=== PATIENT | female | born 1985 | race Caucasian/White ===

== ENCOUNTER 2018-11-26 12:25 | Inpatient (IN) | payer OTHER ==
[2018-11-26] MEDS ORDERED: CITRIC ACID/SODIUM CITRATE 30 ML UNIT-DOSE CUP PO ONE ×2 (12:53→13:00)
[2018-11-26] MEDS ORDERED: ELECTROLYTE-148 SOLN 1,000 ML IV SCH (13:00)
[2018-11-26] MEDS ORDERED: ELECTROLYTE-148 SOLN 1,000 ML IV ONE (13:00)
[2018-11-26 13:16] VITALS: BMI 28.3
[2018-11-26] MEDS ORDERED: morphine SULFATE/PF 0.5 MG/ML (2cc Syringe - QUVA) ONE (14:06)
[2018-11-26] MEDS ORDERED: ceFAZolin SODIUM 1 GM VIAL ONE (14:06)
[2018-11-26] MEDS ORDERED: ePHEDrine SULFATE 50 MG/1 ML AMPULE ONE (14:06)
[2018-11-26] MEDS ORDERED: OXYTOCIN 20 UNITS in 0.9% NS 40 UNIT/2,000 ML INFUS.BAG IV ONE (14:12)
--- NOTE | 2018-11-26 14:18 | HP ---
Past Medical History - Primary Care Physician PCP:: Ritesh Wei - Admission Chief Complaint: Scheduled repeat C/S History of Present Illness: Late care seeker and prior c/S desiring repeat C/S History Source: Patient Limitations to Obtaining History: No Limitations - Past Medical History CREDIT CONTROLLER: No: Alzheimer's, CVA, Dementia, Migraine, Multiple Sclerosis, Peripheral Neuropathy, Parkinson's, Seizure, Syncope, TIA, Vertigo, Other Cardiovascular: No: AFIB, Aneurysm, Aortic Insufficiency, Aortic Stenosis, CAD, CHF, Deep Vein Thrombosis, HTN, Hyperlipdemia, [place], Mitral Insufficiency, Mitral Stenosis, Murmur, Pulmonary Hypertension, Other Pulmonary: No: Asthma, Bronchitis, Cancer, COPD, O2 Dependent, Pneumonia, Previously Intubated, Pulmonary Embolus, Pulmonary Fibrosis, Sleep Apnea, Other Gastrointestinal: No: Ascites, Cancer, Constipation, Crohn's Disease, Diverticulitis, Diverticulosis, Esophageal Varices, Gastritis, GERD, GI Bleed, Hemorrhoids, Hiatal Hernia, Inflamatory Bowel Disease, Irritable Bowel Disease, Pancreatitis, Peptic Ulcer Disease, Ulcerative Colitis, Other Hepatobiliary: No: Cirrhosis, Cholelithiasis, Cholecystitis, Choledocholithiasis , Hepatitis A, Hepatitis B, Hepatitis C, Other Renal/: No: Renal Failure, Renal Inusuff, BPH, Cancer, Hematuria, Hemodialysis , Neurogenic Bladder, Renal Calculi, UTI, Other Reproductive: No: Ectopic , Endometriosis, Fibroids, PID, Polycystic Ovary Syndrome, Postmenopausal, Other ...: 4 ...Para: 3 ...Term: 3 ...: 0 ...Spon : 0 ...Induced : 0 ...Multiple Gestation: 0 ...LMP: 02/20/18 ... Weeks Gestation by Dates: 39.6 ...EDC by Dates: 11/27/18 ...EDC by Sono: 12/03/18 Heme/Onc: No: Anemia, B12 Deficiency, Bleeding Disorder, Cancer, Current Chemotherapy, Current Radiation Therapy, Hemochromatosis, Hypercoaguable State, Myeloproliferative Synd, Sickle Cell Disease, Sickle Cell Trait, Thrombocytopenia, Other Infectious Disease: No: AIDS, C-Diff, Herpes Zoster, HIV, MRSA, STD's, Tuberculosis, VREF, Other Psych: No: Addictions, Anxiety, Bipolar, Depression, Panic, Psychosis, Schizophrenia, Other Musculoskeletal: No: Bursitis, Chronic low back pain, Hemiparesis, Hemiplegia, Osteoarthritis, Paraplegia, Other Rheumatology: No: Fibromyalgia, Gout, Lupus, Rheumatoid Arthritis, Sarcoidosis, Vasculitis, Other ENT: No: Allergic Rhinitis, Sinusitis, Other Endocrine: No: Oscar's Disease, Gorin's Disease, Diabetes Insipidus, Diabetes Mellitus, Hyperparathyroidism, Hyperthyroidism, Hypothyroidism, Osteopenia, SIADH, Other Dermatology: No: Basal Cell, Cellulitis, Eczema, Melanoma, Psoriasis, Squamous Cell, Other - Past Surgical History Past Surgical History: Yes: Hx Myomectomy: No Hx Transabdominal Cerclage: No - Smoking History Smoking history: Never smoked Have you smoked in the past 12 months: No - Alcohol/Substance Use Hx Alcohol Use: No - Social History History of Recent Travel: Yes Home Medications - Allergies Allergies/Adverse Reactions: Allergies Allergy/AdvReac Type Severity Reaction Status Date / Time No Known Allergies Allergy Verified 11/26/18 12:39 - Home Medications Home Medications: Ambulatory Orders Pnv No.95/Ferrous Fum/Folic AC [ Vitamin Tablet] 1 each PO DAILY Family Disease History - Family Disease History Family History: Unremarkable Review of Systems - Review of Systems Constitutional: reports: No Symptoms Eyes: reports: No Symptoms HENT: reports: No Symptoms Neck: reports: No Symptoms Cardiovascular: reports: No Symptoms Respiratory: reports: No Symptoms Gastrointestinal: reports: No Symptoms Genitourinary: reports: No Symptoms Breasts: reports: No Symptoms Reported Musculoskeletal: reports: No Symptoms Integumentary: reports: No Symptoms Neurological: reports: No Symptoms Endocrine: reports: No Symptoms Hematology/Lymphatic: reports: No Symptoms Psychiatric: reports: No Symptoms Physical Exam - Maternity Vital Signs: Vital Signs Temperature 98.8 F 11/26/18 12:25 Pulse Rate 90 11/26/18 12:25 Respiratory Rate 18 11/26/18 12:25 Blood Pressure 95/58 L 11/26/18 12:25 O2 Sat by Pulse Oximetry (%) Constitutional: Yes: No Distress Eyes: Yes: WNL HENT: Yes: Atraumatic, Normocephalic Neck: Yes: Supple Cardiovascular: Yes: Regular Rate and Rhythm Breast(s): Yes: WNL, Other (deferred) - Abdominal Exam/OB Number of Fetuses: Single Presentation: Vertex Contractions: Yes Regularity: Irregular Intensity: Unaware Monitor Mode: External Category: I Accelerations: Uniform Decelerations: None - Vaginal Exam/OB Vaginal Bleediing: No Speculum Exam: No (exam deferred) Amniotic Membrane Status: Intact - Physical Exam Musculoskeletal: Yes: WNL Extremities: Yes: WNL Edema: Yes Edema: LLE: Trace, RLE: Trace Integumentary: Yes: WNL ...Motor Strength: WNL Psychiatric: Yes: Alert, Oriented - Labs Lab Results: reviewed Imaging - Results Ultrasound: Report Reviewed, Image Reviewed Problem List - Problems (1) History of delivery Code(s): Z98.891 - HISTORY OF UTERINE SCAR FROM PREVIOUS SURGERY Assessment/Plan 33 y/o @ 29wks by 1st trimester sono, prior C/S desiring repeat C?S, late transfer of care, risks and complications of section discussed. Informed consebt obtained after all questions were answered. -Proceed with surgery as scheduled
[2018-11-26] MEDS ORDERED: DEXAMETHASONE SOD PHOSPHATE 4 MG/1 ML VIAL ONE (14:38)
[2018-11-26] MEDS ORDERED: OXYTOCIN 10 UNITS/ML VIAL ONE (14:38)
[2018-11-26] MEDS ORDERED: ONDANSETRON 4 MG/2 ML VIAL IVPUSH PRN (15:10)
[2018-11-26] MEDS ORDERED: morphine SULFATE/PF 0.5 MG/ML (2cc Syringe - QUVA) EP ONE (15:10)
[2018-11-26] MEDS ORDERED: IBUPROFEN 600 MG TABLET (FP) PO PRN (15:37)
--- NOTE | 2018-11-26 15:37 | PN ---
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 Please refer to dictated note for details, Dic #[id number]
[2018-11-26] MEDS ORDERED: SIMETHICONE 80 MG TAB.CHEW (FP) PO PRN (15:38)
[2018-11-26] MEDS ORDERED: ACETAMINOPHEN 325 MG TABLET (FP) PO PRN (15:38)
[2018-11-26] MEDS ORDERED: SENNOSIDES/DOCUSATE COMBO (SENNA PLUS) TABLET (UD) PO PRN (15:38)
[2018-11-26 16:33] LABS: COCAINE, UR NEGATIVE ng/ml (CUTOFF=300); METHADONE, UR NEGATIVE ng/ml (CUTOFF=300); OPIATES, URI NEGATIVE ng/ml (CUTOFF=300); PHENCYCLIDINE,URINE NEGATIVE ng/ml (CUTOFF=25); URINE AMPHETAMINES NEGATIVE ng/ml (CUTOFF=500); URINE BARBITURATES NEGATIVE ng/ml (CUTOFF=200); URINE BENZODIAZEPINES NEGATIVE ng/ml (CUTOFF=200)
[2018-11-26] MEDS: OXYTOCIN 20 UNITS in 0.9% NS 20 UNIT/1,000 ML INFUS.BAG IV SCH ×2 (17:05→23:01)
[2018-11-26] MEDS ORDERED: METHYLERGONOVINE MALEATE 0.2 MG/1 ML AMP IM ONE (17:18)
--- NOTE | 2018-11-26 17:26 | OP ---
DATE OF OPERATION: 11/26/2018 PREOPERATIVE DIAGNOSIS: A 33-year-old 4, para 3 at 39 with gestation, prior section, desiring repeat section. POSTOPERATIVE DIAGNOSIS: A 33-year-old 4, para 3 at 39 with gestation, prior section, desiring repeat section. SURGERY: Repeat low transverse section, uncomplicated. SURGEON: Britt Méndez M.D. UTILIZATION REVIEWER: Uzair Gallegos ANESTHESIA: Spinal. ESTIMATED BLOOD LOSS: 600. INTRAVENOUS FLUIDS: 1200 mL of crystalloid. URINE: Clear. COMPLICATIONS: None. INTRAOPERATIVE FINDINGS: Low abdominal skin incision scar consistent with prior section, mild amount of subcutaneous adipose tissue and fibrotic tissue. The fascia was thick, adherent to the underlying rectus muscles. Rectus muscles were fused to each other in the midline. No visualized adhesions to the parietal peritoneum. The lower uterine segment was mildly effaced. Infant in cephalic presentation. Clear amniotic fluid. No nuchal cord present. Live viable female . Uterine fundus, fallopian tubes, and ovaries consistent with normal anatomy. Bladder dome and rectus muscles fascial interface dry. DESCRIPTION OF PROCEDURE: The patient was taken to the operating room where spinal anesthesia was found to be adequate. She was then prepped and draped in the normal sterile fashion. A Emery catheter was placed atraumatically. Appropriate timeout took place. Pfannenstiel skin incision was made with the scalpel and carried to underlying fascia with Bovie. The fascia was incised in the midline and incision extended laterally with sharp dissection. Incision was extended laterally with sharp dissection. The underlying rectus muscles were dissected off the overlying fascia with sharp dissection. The rectus muscles were fused at the midline and elevated with Allis clamps. It was in the midline superiorly with scalpel. Gaining entry to the peritoneum revealed no visualized adhesions at the point of entry by digital palpation by the surgeon. Incision was extended superiorly and inferiorly with blunt and sharp dissection. Bladder blade was placed on the lower uterine segment noted as previously mentioned. Lower uterine segment incision was made with the scalpel approximately 5 cm above the vesicouterine junction. Incision was extended laterally with blunt dissection. Amniotomy revealed clear amniotic fluid. Infant in cephalic presentation. was elevated through surgical incision and delivered with mild fundal pressure without difficulty. The shoulders and rest of the body followed without difficulty. The umbilical cord was clamped and cut after delay. The was handed off to the waiting NICU staff. The placenta was removed manually and intact. The uterus was exteriorized through the surgical incision, and the intrauterine cavity was cleared of al clots and debris. The uterine incision was reapproximated with 1-0 Vicryl in a running locked suture. Excellent structural reapproximation achieved, and two [id number] stitches of the same suture were required at midline to control minimal oozing. Uterus was internalized to the pelvic cavity and gutters were cleared of all clots and debris. Secondary inspection of the uterine incision revealed excellent hemostasis. Bladder dome and rectal muscles fascial interface were examined and noted to be dry. The fascial incision was reapproximated with 0 Vicryl running sutures. Excellent structural reapproximated achieved and confirmed by digital palpation by the surgeon. Subcutaneous tissues were copiously irrigated. Bleeders neutralized with Bovie cautery. Subcutaneous tissue in the midline was reapproximated with 1-0 Vicryl. Skin incision was reapproximated with 3-0 subcuticular Vicryl sutures. Excellent reapproximation with this noted. Dressing is placed on the incision. Patient tolerated the procedure well and was brought to the recovery room in stable condition. Instrument count was reported as correct x2 by the staff. BRITT MÉNDEZ MD [id number] MTDD
--- NOTE | 2018-11-26 17:28 | PN ---
Progress Note, Physician Chief Complaint: incision dressing saturated in one site. Patient is doing well, denies any dizziness, lightheadedness, SOB - Current Medication List Current Medications: Active Medications Acetaminophen (Tylenol -) 650 mg PO Q4H PRN PRN Reason: PAIN LEVEL 4 - 6 Bisacodyl (Dulcolax Suppository -) 10 mg RC PRN PRN PRN Reason: CONSTIPATION Diphenhydramine HCl (Benadryl Injection -) 25 mg IVPUSH Q4H PRN PRN Reason: Pruritis Parenteral Electrolytes (Plasma-Lyte 148 -) 1,000 mls @ 125 mls/hr IV [facility] Last Admin: 11/26/18 13:05 Dose: 125 mls/hr Oxytocin/Sodium Chloride (Normal Saline+20 Units Oxytocin -) 1,000 mls @ 125 mls/hr IV [facility] Ibuprofen (Motrin -) 600 mg PO Q4H PRN PRN Reason: PAIN LEVEL 1 - 3 Methylergonovine Maleate (Methergine Injection -) 0.2 mg IM ONCE ONE Stop: 11/26/18 17:19 Methylergonovine Maleate (Methergine -) 0.2 mg PO Q4H GM Stop: 11/27/18 17:30 Ondansetron HCl (Zofran Injection) 4 mg IVPUSH Q4H PRN PRN Reason: NAUSEA Oxycodone HCl (Roxicodone -) 5 mg PO Q4H PRN PRN Reason: PAIN LEVEL 6-10 Senna/Docusate Sodium (Pericolace -) 2 tablet PO HS PRN PRN Reason: CONSTIPATION Simethicone (Mylicon -) 80 mg PO Q4H PRN PRN Reason: GAS - Objective Vital Signs: Vital Signs Temperature 97.5 F L 11/26/18 16:15 Pulse Rate 86 11/26/18 16:15 Respiratory Rate 18 11/26/18 16:15 Blood Pressure 101/57 L 11/26/18 16:15 O2 Sat by Pulse Oximetry (%) 99 11/26/18 16:15 Genitourinary: Yes: Vaginal Bleeding (SVE: cervix 3cm deliated and blood clots from lower uterine segment expressed. FUndus is firm 2 cm below umbilicus. Approximately 100ml) Edema: LLE: Trace, RLE: Trace Wound/Incision: Yes: Dressing Removed (no active bleeding noted and steri- strips removed. Mild oozing from small area of incision at skin edges when pressure applied. New stri-strips and pressure dressing placed) Labs: CBC ordered Problem List - Problems (1) History of delivery Code(s): Z98.891 - HISTORY OF UTERINE SCAR FROM PREVIOUS SURGERY Assessment/Plan POD # 0 with partial saturation of dressing and mild atony. Patient is in stable condition -Stat labs -Methergine series -increase pitocin administration
[2018-11-26 17:53] LABS: BASO % 0.1 % (0-2.0); EOS % 0.3 % (0-4.5); HEMATOCRIT 33.7 % (32.4-45.2); HEMOGLOBIN 11.4 GM/dL (10.7-15.3); LYMPH % 7.6 % (8-40); MCHC 33.9 g/dl (32.0-36.0); MEAN CELL VOLUME 85.7 fl (80-96); MEAN PLT VOLUME 9.9 fl (7.5-11.1); MONO % 1.8 % (3.8-10.2); NEUT % 90.2 % (42.8-82.8); PLATELET COUNT 141 K/MM3 (134-434); RBC 3.93 M/mm3 (3.60-5.2); RDW 14.5 % (11.6-15.6); WHITE BLOOD COUNT 11.8 K/mm3 (4.0-10.0)
[2018-11-26] MEDS ORDERED: METHYLERGONOVINE MALEATE 0.2 MG TABLET (FP) PO SCH (18:00)
[2018-11-26 21:02] LABS: BASO % 0.1 % (0-2.0); EOS % 0.1 % (0-4.5); HEMOGLOBIN 11.8 GM/dL (10.7-15.3); LYMPH % 6.6 % (8-40); MCH 28.8 pg (25.7-33.7); MCHC 33.6 g/dl (32.0-36.0); MEAN CELL VOLUME 85.8 fl (80-96); MEAN PLT VOLUME 10.3 fl (7.5-11.1); MONO % 2.9 % (3.8-10.2); NEUT % 90.3 % (42.8-82.8); PLATELET COUNT 137 K/MM3 (134-434); RBC 4.08 M/mm3 (3.60-5.2); RDW 14.5 % (11.6-15.6); WHITE BLOOD COUNT 15.4 K/mm3 (4.0-10.0)
[2018-11-26] MEDS: METHYLERGONOVINE MALEATE 0.2 MG TABLET (FP) PO SCH (21:26)
[2018-11-27] MEDS: METHYLERGONOVINE MALEATE 0.2 MG TABLET (FP) PO SCH ×5 (01:02→18:03)
[2018-11-27 07:46] LABS: BASO % 0.2 % (0-2.0); EOS % 0.8 % (0-4.5); HEMATOCRIT 34.1 % (32.4-45.2); HEMOGLOBIN 11.7 GM/dL (10.7-15.3); LYMPH % 11.8 % (8-40); MCHC 34.3 g/dl (32.0-36.0); MEAN CELL VOLUME 84.7 fl (80-96); MONO % 6.5 % (3.8-10.2); NEUT % 80.7 % (42.8-82.8); PLATELET COUNT 130 K/MM3 (134-434); RBC 4.03 M/mm3 (3.60-5.2); RDW 14.6 % (11.6-15.6); WHITE BLOOD COUNT 12.7 K/mm3 (4.0-10.0)
[2018-11-27] MEDS: IBUPROFEN 600 MG TABLET (FP) PO PRN ×2 (08:59→22:07)
[2018-11-27] MEDS: SIMETHICONE 80 MG TAB.CHEW (FP) PO PRN ×2 (08:59→22:07)
[2018-11-27] MEDS: oxyCODONE HCL 5 MG TABLET PO PRN ×2 (09:00→22:07)
--- NOTE | 2018-11-27 09:08 | PN ---
Post Progress Note - Subjective Subjective: sanchez in place, lochia decreased, tolerating PO, breast feeding Post Day: 1 Type of Delivery: Repeat C/S Vital Signs: Vital Signs Temperature 98.3 F 11/27/18 04:00 Pulse Rate 75 11/27/18 04:00 Respiratory Rate 18 11/27/18 06:00 Blood Pressure 105/59 L 11/27/18 04:00 O2 Sat by Pulse Oximetry (%) 99 11/26/18 16:15 Breast Exam: Yes: Other (deferred) Uterus: Yes: Fundus Firm Incision: Yes: Dressing dry and intact (removed), Sutures intact Abdomen/GI: Yes: Abdomen soft Lochia, amount: Small Extremities: Yes: Calves non-tender Activity: Ambulating - Labs Labs: CBC WBC 12.7 K/mm3 (4.0-10.0) H 11/27/18 06:00 RBC 4.03 M/mm3 (3.60-5.2) 11/27/18 06:00 Hgb 11.7 GM/dL (10.7-15.3) 11/27/18 06:00 Hct 34.1 % (32.4-45.2) 11/27/18 06:00 MCV 84.7 fl (80-96) 11/27/18 06:00 MCH 29.0 pg (25.7-33.7) 11/27/18 06:00 MCHC 34.3 g/dl (32.0-36.0) 11/27/18 06:00 RDW 14.6 % (11.6-15.6) 11/27/18 06:00 Plt Count 130 K/MM3 (134-434) L 11/27/18 06:00 MPV 10.0 fl (7.5-11.1) 11/27/18 06:00 Absolute Neuts (auto) 10.2 K/mm3 (1.5-8.0) H 11/27/18 06:00 Neutrophils % 80.7 % (42.8-82.8) 11/27/18 06:00 Lymphocytes % 11.8 % (8-40) D 11/27/18 06:00 Monocytes % 6.5 % (3.8-10.2) D 11/27/18 06:00 Eosinophils % 0.8 % (0-4.5) D 11/27/18 06:00 Basophils % 0.2 % (0-2.0) 11/27/18 06:00 Nucleated RBC % 0 % (0-0) 11/27/18 06:00 Problem List - Problems (1) History of delivery Code(s): Z98.891 - HISTORY OF UTERINE SCAR FROM PREVIOUS SURGERY (2) Delivery by section Code(s): DXS6568 - Assessment/Plan POD # 1 in stable condition -D/C follow -ambulation encouraged -F/A labs -Complete methergine series
[2018-11-27] MEDS ORDERED: DIPHTH,PERTUSS(ACELL),TET 0.5 ML DISP.SYRIN IM ONE (10:00)
--- NOTE | 2018-11-27 13:55 | PN ---
Progress Note (short form) - Note Progress Note: Anesthesia postop note 33y/o F s/p spinal anesthesia duramorph for postop pain control POD#!, vss, aaox3, pain well controlled, no complaints, sensory motor intact distally No anesthesia complications.
[2018-11-27] MEDS ORDERED: BISACODYL 10 MG SUPP.RECT RC PRN ×2 (15:37→15:38)
[2018-11-28] MEDS: IBUPROFEN 600 MG TABLET (FP) PO PRN (07:13)
[2018-11-28] MEDS: SIMETHICONE 80 MG TAB.CHEW (FP) PO PRN (07:13)
[2018-11-28] MEDS: oxyCODONE HCL 5 MG TABLET PO PRN (07:16)
--- NOTE | 2018-11-28 08:07 | PN ---
Post Progress Note - Subjective Subjective: Headache with standing, also neck pain. Declined blood patch from anesthesia today. Post Day: 2 Type of Delivery: Repeat C/S Vital Signs: Vital Signs Temperature 99.1 F 11/27/18 20:43 Pulse Rate 70 11/27/18 20:43 Respiratory Rate 20 11/27/18 20:43 Blood Pressure 100/57 L 11/27/18 20:43 O2 Sat by Pulse Oximetry (%) 99 11/26/18 16:15 Uterus: Yes: Fundus Firm Incision: Yes: Dressing dry and intact Abdomen/GI: Yes: Abdomen soft, Passing flatus, Tolerating PO Lochia: Yes: Rubra Lochia, amount: Small Extremities: Yes: Calves non-tender Perineum: Yes: Intact Activity: Ambulating - Labs Labs: CBC WBC 12.7 K/mm3 (4.0-10.0) H 11/27/18 06:00 RBC 4.03 M/mm3 (3.60-5.2) 11/27/18 06:00 Hgb 11.7 GM/dL (10.7-15.3) 11/27/18 06:00 Hct 34.1 % (32.4-45.2) 11/27/18 06:00 MCV 84.7 fl (80-96) 11/27/18 06:00 MCH 29.0 pg (25.7-33.7) 11/27/18 06:00 MCHC 34.3 g/dl (32.0-36.0) 11/27/18 06:00 RDW 14.6 % (11.6-15.6) 11/27/18 06:00 Plt Count 130 K/MM3 (134-434) L 11/27/18 06:00 MPV 10.0 fl (7.5-11.1) 11/27/18 06:00 Absolute Neuts (auto) 10.2 K/mm3 (1.5-8.0) H 11/27/18 06:00 Neutrophils % 80.7 % (42.8-82.8) 11/27/18 06:00 Lymphocytes % 11.8 % (8-40) D 11/27/18 06:00 Monocytes % 6.5 % (3.8-10.2) D 11/27/18 06:00 Eosinophils % 0.8 % (0-4.5) D 11/27/18 06:00 Basophils % 0.2 % (0-2.0) 11/27/18 06:00 Nucleated RBC % 0 % (0-0) 11/27/18 06:00 Assessment/Plan 33yo s/p RLTCS, POD#2 Routine PP care PO pain control Rediscussed anesthesia blood patch, to consider Anticipate d/c to home POD#3 Zari Finch MD
--- NOTE | 2018-11-28 08:41 | PN ---
Progress Note (short form) - Note Progress Note: Anesthesia POD#2 S/P C- Section under Spinal anesthesia VSS,c/o neck pain and dizziness while getting out of bed. Seen and examined at the bedside. A/P Strong suspicion of PDPH. She would need Blood Patch before going home. Spoke to the patient,she wants some time to think about it. Sade Can MD.
--- NOTE | 2018-11-28 10:31 | PN ---
Progress Note (short form) - Note Progress Note: Epidural blood patch done under sterile conditions at L2-L3.20 Ml of Patient,s own blood drawn under sterile conditions injected through the epidural needle.Patient,s headache subsided.Advised bed rest for about 30 minutes.
--- NOTE | 2018-11-29 06:15 | DS ---
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 Vital Signs: Vital Signs Temperature 98.4 F 11/28/18 21:18 Pulse Rate 74 11/28/18 21:18 Respiratory Rate 20 11/28/18 21:18 Blood Pressure 116/64 11/28/18 21:18 O2 Sat by Pulse Oximetry (%) 99 11/26/18 16:15 Constitutional: Yes: Well Nourished, No Distress, Calm Eyes: Yes: WNL, Conjunctiva Clear, EOM Intact HENT: Yes: WNL, Atraumatic, Normocephalic Neck: Yes: WNL, Supple, Trachea Midline Cardiovascular: Yes: WNL, Regular Rate and Rhythm Respiratory: Yes: WNL, Regular, CTA Bilaterally Gastrointestinal: Yes: WNL ...Rectal Exam: Yes: WNL Renal/: Yes: WNL Cervix: Yes: Normal ....Post : Yes: Uterus firm, Uterus non-tender, Slight lochia rubra Breast(s): Yes: WNL Musculoskeletal: Yes: WNL Extremities: Yes: WNL Edema: No Integumentary: Yes: WNL Wound/Incision: Yes: Clean/Dry, Well Approximated, Sutures Intact Neurological: Yes: WNL, Alert, Oriented ...Motor Strength: WNL Psychiatric: Yes: WNL, Alert, Oriented Labs: CBC, BMP 11/27/18 06:00 Delivery - Delivery Section: Repeat Type of Anesthesia: Spinal Episiotomy/Laceration: None EBL (cc): 600 Delivery, Single - Stages of Labor Date of Delivery: 11/26/18 Time of Delivery: 14:45 Time Placenta Delivered: 14:46 Placenta: Yes: Manual Removal - Condition of Infant 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 Wei for an incision check Regular Diet Referrals: Ritesh Wei MD [Staff Physician] - Disposition: HOME - Home Medications Comprehensive Discharge Medication List: Ambulatory Orders Docusate Sodium [Colace] 100 mg PO BID PRN 7 Days #14 capsule MDD 2 11/26/18 Ibuprofen 600 mg PO Q6H PRN #30 tablet 11/26/18 Oxycodone HCl/Acetaminophen [Percocet 5-325 mg Tablet -] 1 tab PO Q4H PRN 3 Days #14 tab MDD 6 11/26/18 Pnv No.95/Ferrous Fum/Folic AC [ Vitamin Tablet] 1 each PO DAILY
[2018-11-29] MEDS: IBUPROFEN 600 MG TABLET (FP) PO PRN (08:06)
[2018-11-29] MEDS: SIMETHICONE 80 MG TAB.CHEW (FP) PO PRN (08:06)
--- NOTE | 2018-11-29 08:56 | PN ---
Progress Note (short form) - Note Progress Note: Patient had a blood patch for post op dural puncture headache.The headache subsided with blood patch.This morning she is c/o some backache whAsich i reassured her will subside with time.Also her headache is back with pain score of 4/10 so i have advised the patient to take conservative treatment and only if headache gets really worst then a 2d epidural blood patch may be considered in few days.
[2018-11-29 09:51] VITALS: BP 110/48; PULSE 64; TEMP 97.6
--- NOTE | 2018-11-29 14:37 | SURG ---
Surgery Sheet Rock Installation Helper Note Sheet Rock Installation Helper: Martha White PA-C Date of Service: 11/26/18 Diagnosis: desired repeat section, Procedure: repeat low transverse section, uncomplicated I was present for the entirety of the operative procedure. For further detail, please refer to operative report. Visit type - Case Type Case Type: Scheduled - Emergency Emergency Visit: No - New patient This patient is new to me today: Yes Date on this admission: 11/29/18
--- NOTE | 2018-11-29 16:30 | PATH ---
Surgical Pathology Report Patient Name: ELIZABETH HASSAN Med. Rec. 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 Electronically Signed Precious Bernardo M.D. Gross Description The specimen is received fresh labeled placenta and is a 546 gram, 27.0 x 15.0 x 1.8 cm. placenta with attached membranes and umbilical cord. The attached membranes are hernandez, translucent with focal opacities and insert marginally. The umbilical cord measures 17 cm. in length and averages 1.1 cm. in diameter. The cord inserts eccentrically, 6.5 cm. to the nearest margin. No true knots or strictures are identified. Cut surface of the umbilical cord reveals 3 vessels. The surface is grossman-blue with minimal fibrin deposition and appropriate caliber vessels. The maternal surface is red-brown with focal defects. Sectioning reveals red-brown, spongy parenchyma. No lesions are identified. Head Of Ethics And Compliance sections are submitted in three cassettes as follows: 1- membrane rolls and umbilical cord; 2-3- full thickness sections of placenta. /11/28/2018 saudi/11/28/2018
== END 2018-11-29 12:10 | disposition home or self-care (01) | DRG 540 ==
LOC: JLDR 12:25 → J3W 18:02
PROVIDERS: ADMIT Student in an Organized Health Care Education/Training Program; ATTEND Student in an Organized Health Care Education/Training Program
PROC: 10D00Z1 Extraction of Products of Conception, Low, Open Approach (ICD-10-PCS; principal; 2018-11-26)
DX: O34.211 Maternal care for low transverse scar from previous cesarean delivery (principal); Z3A.39 39 weeks gestation of pregnancy; Z37.0 Single live birth
CPT/HCPCS: 36415; 80307; 85025; 87389; 88307-TC; 90715